=== PATIENT | female | born 1945 | race African-American/Black ===

== ENCOUNTER 2020-01-16 10:01 | Emergency (ER) | payer MEDICARE ==
[~2020-01-16] VITALS: Ht 154.9 cm; Wt 72.7 kg
[2020-01-16] MEDS ORDERED: HYDR10TA31 PO (10:22)
[2020-01-16] MEDS ORDERED: GABA-533 PO (10:22)
[2020-01-16] MEDS ORDERED: AMLO10TA7 PO (10:22)
[2020-01-16 11:25] VITALS: BP 131/89
== END 2020-01-16 12:15 | disposition left against medical advice (07) ==
LOC: EMS 10:12
DX: R07.89 Other chest pain (principal); I10 Essential (primary) hypertension; J45.909 Unspecified asthma, uncomplicated; Z76.0 Encounter for issue of repeat prescription; Z88.2 Allergy status to sulfonamides; Z91.040 Latex allergy status; Z79.899 Other long term (current) drug therapy
CPT/HCPCS: 93005